=== PATIENT | female | born 1980 | race Two or more races ===

== ENCOUNTER 2021-12-04 13:32 | Emergency (ER) | payer SELFPAY ==
[~2021-12-04] VITALS: Ht 160 cm; Wt 66.2 kg
--- NOTE | 2021-12-04 13:32 | NUR ---
BIBS C/O LOWER BACK PAINS S/P GLF YESTERDAL -BT - LOC, PT ABLE TO AMBULATE WITHOUT ASSISTANCE, STEADY GAIT
[2021-12-04] MEDS ORDERED: IBUPROFEN 600 MG TABLET ONE (14:45)
[2021-12-04] MEDS ORDERED: CYCLOBENZAPRINE 10 MG TABLET ONE (14:45)
[2021-12-04] MEDS: IBUPROFEN 600 MG TABLET PO ONE (14:52)
[2021-12-04] MEDS: LIDOCAINE 5% (PATCH) 1 EA PATCH TP SCH (14:52)
[2021-12-04] MEDS: CYCLOBENZAPRINE 10 MG TABLET PO ONE (14:52)
--- NOTE | 2021-12-04 15:54 | NUR ---
PT DISCHARGED WITHOUT PAPERS, PT ABLE TO AMBULATE ON HER OWN.
[2021-12-04 17:04] VITALS: BP 136/82
== END 2021-12-04 17:04 | disposition home or self-care (01) ==
LOC: ER 13:34
DX: M79.10 Myalgia, unspecified site (principal)
CPT/HCPCS: 72110-TC; 72170-TC